=== PATIENT | female | born 2000 | race Hispanic/Latino ===

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

== ENCOUNTER 2024-07-05 20:29 | Emergency (ER) | payer OTHER ==
[~2024-07-05] VITALS: Ht 165.1 cm; Wt 55.6 kg
[2024-07-05 20:53] VITALS: TEMP 98.8
[2024-07-05 21:43] VITALS: PULSE 97; RESP 15
[2024-07-05] MEDS: LORAZEPAM INJ 2 MG/ML VIAL IV STA (21:43)
[2024-07-05] MEDS: SODIUM CHLORIDE 0.9% 1000ML 1,000 ML IV STA (21:43)
[2024-07-05] MEDS ORDERED: HYDROXYZINE HCL25 MG PO (22:17)
[2024-07-05 23:53] VITALS: BP 129/77; PULSE 62; RESP 18; TEMP 98.6; O2SAT 98
== END 2024-07-05 22:21 | disposition home or self-care (01) ==
LOC: FSED 20:36
DX: R00.2 Palpitations (principal); R07.89 Other chest pain; R94.31 Abnormal electrocardiogram [ECG] [EKG]
CPT/HCPCS: 71046; 80053; 80307; 81003; 81025; 82553; 84484; 85025; 93005; 99284; J2060; J7030